=== PATIENT | male | born 1995 | race African-American/Black ===

== ENCOUNTER 2017-08-13 09:08 | Emergency (ER) | payer SELFPAY ==
[~2017-08-13] VITALS: Ht 182.9 cm; Wt 81.6 kg
[2017-08-13 09:29] VITALS: BP 116/110
--- NOTE | 2017-08-13 10:40 | Emergency Room Report ---
History of Present Illness General Chief Complaint: Headache Source: Patient Present Illness HPI 22-year-old male presents ED for evaluation. Patient is in police custody and is here for medical clearance. Patient states he has a abrasion to his forehead. States he was out drinking last night and fell. Denies LOC. Patient has history of hydrocephalus with CORPOR[employer]OR shunt. Patient denies headache. Denies any photophobia blurry vision. Denies nausea or vomiting. Denies neck stiffness fevers chills. No other aggravating relieving factors. 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 Pertinent Family History: none Social History: Denies: smoking, alcohol use, drug use Immunizations: UTD Reviewed Nursing Documentation: PMH: Agreed, PSxH: Agreed Nursing Documentation-PMH Past Medical History: No History, Except For Hx Neurological Problems: Yes - hydrocephalis has shunt Review of Systems All Other Systems: negative except mentioned in HPI Physical Exam Vital Signs Date Time Temp Pulse Resp B/P (MAP) Pulse Ox O2 Delivery O2 Flow Rate FiO2 08/13/17 09:10 98.4 79 16 116/110 100 Room Air Sp02 EP Interpretation: reviewed, normal General Appearance: no apparent distress, alert, GCS 15, non-toxic Head: normocephalic, other - abrasion to R forehead Eyes: bilateral eye normal inspection, bilateral eye PERRL ENT: hearing grossly normal, normal pharynx, no angioedema, normal voice Neck: full range of motion, supple/symm/no masses Respiratory: chest non-tender, lungs clear, normal breath sounds, speaking full sentences Cardiovascular #1: regular rate, rhythm, no edema Cardiovascular #2: 2+ carotid (R), 2+ carotid (L), 2+ radial (R), 2+ radial (L) , 2+ dorsalis pedis (R), 2+ dorsalis pedis (L) Gastrointestinal: normal bowel sounds, non tender, soft, non-distended, no guarding, no rebound Rectal: deferred Genitourinary: normal inspection, no CVA tenderness Musculoskeletal: back normal, gait/station normal, normal range of motion, non- tender Neurologic: alert, oriented x3, responsive, motor strength/tone normal, sensory intact, speech normal Psychiatric: judgement/insight normal, memory normal, mood/affect normal, no suicidal/homicidal ideation Reflexes: 3+ bicep (R), 3+ bicep (L), 3+ tricep (R), 3+ tricep (L), 3+ knee (R) , 3+ knee (L) Skin: normal color, no rash, warm/dry, well hydrated Lymphatic: no adenopathy Medical Decision Making Diagnostic Impression: Primary Impression: Medical clearance for incarceration Additional Impression: Head injury Qualified Codes: S09.90XA - Unspecified injury of head, initial encounter ER Course Hospital Course 22-year-old male presents to ED for fdc clearance. abrasion to head s/p fall Clinical course Patient placed on stretcher. Handcuffs. After initial history, physical exam reveals a young male in no acute distress. There is a superficial abrasion to the forehead. No pain. No bruising. No focal neurological deficits. No neck pain or neck stiffness. Patient is awake alert oriented x3. Given the history of hydrocephalus with CORPOR[employer]OR shunt I did offer patient option for CAT scan. Patient declined. Patient also declined any pain medication. I believe patient can be safely discharged into police custody Diagnosis - medical clearance for incarceration , head injury stable and discharged into police custody Last Vital Signs Date Time Temp Pulse Resp B/P (MAP) Pulse Ox O2 Delivery O2 Flow Rate FiO2 08/13/17 09:29 98.4 79 16 116/110 100 Room Air Status: improved Disposition: D/C TO LAW ENFORCEMENT IN CUST Condition: Stable Referrals: NOT CHOSEN IPA/,REFERRING (PCP) Departure Forms: Custodial Clearance Patient Instructions: Head Injury, Adult PAUL PERRY M.D. Aug 13, 2017 10:40
== END 2017-08-13 09:30 ==
LOC: EMR 09:23
DX: S00.81XA Abrasion of other part of head, initial encounter (principal); W19.XXXA Unspecified fall, initial encounter; Y92.89 Other specified places as the place of occurrence of the external cause; G91.9 Hydrocephalus, unspecified; Z98.2 Presence of cerebrospinal fluid drainage device; R51 Headache
CPT/HCPCS: 99283